=== PATIENT | male | born 1965 | race Caucasian/White ===

== ENCOUNTER → 2023-05-26 06:57 | Outpatient (CLI) | payer OTHER, SELFPAY ==
--- NOTE | ~2023-05-26 | MR_ITS ---
MRI of the right shoulder Technique: Axial proton-density fat-sat images, coronal proton density fat-sat and T2 fat-sat images, and sagittal T1-weighted and T2 fat-sat images were acquired. Clinical History: Pain Findings: There is moderate AC joint degenerative change with prominent marrow edema about the AC chidi nt. Coracoclavicular, coracoacromial, and coracohumeral ligaments are intact. Supraspinatus and infraspinatus tendons are intact, with mild to moderate tendinosis, but no partial or full-thickness tear. Subscapularis tendon is intact. Tendon of long head of the biceps is intact. There is superior labral tear. Inferior glenohumeral ligament is intact. No effusion or degenerative change of the glenohumeral join t. No fluid distention of the subacromial/subdeltoid bursa. No muscle atrophy or edema. Impression: Prominent marrow edema about the AC joint with moderate degenerative change. Superior labral tear. Rotator cuff tendinosis. Reviewed, dictated and finalized at location . [employer] Impression: Prominent marrow edema about the AC joint with moderate degenerative change. Superior labral tear. Rotator cuff tendinosis.
== END ==
PROVIDERS: PCP Nurse Practitioner Family; Visit Provider Nurse Practitioner Family
DX: S43.431A Superior glenoid labrum lesion of right shoulder, initial encounter (principal); X58.XXXA Exposure to other specified factors, initial encounter
CPT/HCPCS: 73221